=== PATIENT | male | born 1950 | race Caucasian/White ===

== ENCOUNTER 2018-07-28 20:11 | Emergency (ER) | payer OTHER ==
[~2018-07-28] VITALS: Ht 165.1 cm; Wt 76.2 kg
[2018-07-28] MEDS ORDERED: AMLODIPINE BESY10 MG (20:19)
[2018-07-28] MEDS ORDERED: LIPITOR20 MG (20:19)
[2018-07-28] MEDS ORDERED: BENAZEPRIL HCL20 MG (20:19)
== END 2018-07-29 11:42 | disposition home or self-care (01) ==
LOC: ER 20:11
DX: N41.8 Other inflammatory diseases of prostate (principal); R50.9 Fever, unspecified; N39.0 Urinary tract infection, site not specified; B96.29 Other Escherichia coli [E. coli] as the cause of diseases classified elsewhere